=== PATIENT | male | born 1965 | race African-American/Black ===

== ENCOUNTER 2016-12-28 16:47 | Observation (INO) | payer BC ==
--- NOTE | ~2016-12-28 | DS ---
Discharge Summary [facility] [address] [place]. [address] NAME: TAMEKA DONOVAN : 69 STATUS : DIS Yang PAT#: [id number] AGE: 51 ADM/REG DATE : 12/28/16 MR#: [id number] REPORT SERV DATE: 12/31/16 DICTATED BY: JAMARCUS WOODS DATE: 12/30/16 REPORT STATUS : Draft TRANSCRIBED BY: MODL DATE: 12/30/16 ADMISSION DATE: 12/28/2016 DISCHARGE DATE: 12/30/2016 CHIEF COMPLAINT: Nausea, fever, dizziness. DISCHARGE DIAGNOSES: 1. Fever with unclear etiology, systemic inflammatory response syndrome versus possible sepsis. 2. 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 3. 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 4. Stable anemia. 5. History of atrial fibrillation. 6. Abdominal rash. HISTORY OF PRESENT ILLNESS: Please see full H and P for details regarding initial presentation by Dr. Armani Briones. HOSPITAL COURSE: 1. Fever with elevated procalcitonin. The patient was initially admitted, started on empiric cefepime. Concerned this may be possible evolving sepsis versus systemic inflammatory response syndrome to viral or other etiology. He was started on cefepime with improvement in his white blood cell count from 22.9 to 8.3 and procalcitonin from 8.5 to 2.6. At this point, all cultures have been negative. Chest x-ray, unremarkable and UA, normal. After discussion with Oncology, given the patient wishes to go home today because he has an appointment tomorrow which he does not want to miss, we will discharge him on Omnicef and follow up with Dr. Ty Salvador later this week. He feels fine. No further issues. 2. History of bone marrow transplant due to AML. The patient should continue on his outpatient medications. 3. Anemia, chronic. This is grossly stable. Hemoglobin is 11.1 at discharge. 4. Abdominal rash. Unclear etiology. We will discharge him on clotrimazole for a week if this does not help and he has persistence of this lesion, we would recommend dermatology consultation and biopsy. This is not consistent with shingles. This is nonerythematous and is not painful, and there are no vesicular lesions. 5. History of atrial fibrillation. Continue outpatient medications and Eliquis. Discharge will be home. Follow up will be Dr. Ty Salvador. DISCHARGE MEDICATIONS: Exact same as admission with the addition of Omnicef for seven days and clotrimazole ointment for seven days. PERTINENT LABORATORY DATA: At discharge, white blood cell count 8.3, hemoglobin 11.1, platelet count of 242. BMP grossly unremarkable. Procalcitonin 2.64. PERTINENT IMAGING: Chest x-ray read as no acute cardiopulmonary abnormality. Blood cultures Discharge Summary [address] [address] NAME: TAMEKA DONOVAN : 69 STATUS : DIS Yang PAT#: [id number] AGE: 51 ADM/REG DATE : 12/28/16 MR#: [id number] REPORT SERV DATE: 12/31/16 DICTATED BY: JAMARCUS WOODS DATE: 12/30/16 REPORT STATUS : Draft TRANSCRIBED BY: SANDY DATE: 12/30/16 are no growth. Time spent on this discharge, including discussion with Dr. Valladares from Oncology and the patient as well as nurse is greater than 30 minutes. DNK/MODL Jamarcus Woods MD / [id number] CC: MD Tim Sánchez M.D.
--- NOTE | ~2016-12-28 | HP ---
History And Physical [facility] [address] [place]. [address] NAME: TAMEKA DONOVAN : [birth year] STATUS : ADM Yang PAT#: [id number] AGE: 51 ADM/REG DATE : 12/28/16 MR#: [id number] REPORT SERV DATE: 12/29/16 DICTATED BY: ELIZABETH REID DATE: 12/28/16 REPORT STATUS : Draft TRANSCRIBED BY: MODL DATE: 12/28/16 DATE OF ADMISSION: 12/28/2016 CHIEF COMPLAINT: Nausea, fever, and dizziness. HISTORY OF PRESENT ILLNESS: The patient is a 51-year-old male with past medical history of pneumonia pancreatitis, diabetes, type 2, AML followed by Dr. Salvador, sepsis, and history of home marrow transplant [id number] disease, COPD, BOOP, disseminated herpes/aspergillosis, cardiomyopathy with EF of 40%, atrial fibrillation on chronic Eliquis, who presents today after having nausea, fever, and dizziness feeling. His is at bedside reports that these symptoms actually happened last couple of days, but the patient only recalls last day having these symptoms. Symptoms have been generalized, moderate in severity. The patient has a prescription for amoxicillin that he takes p.r.n. for similar episodes, but when fever was greater than 100 told the patient to come into the hospital for evaluation. Here patient reports that he has some nonspecific abdominal discomfort at times and is nonradiating associated mild nausea, fever, and dizziness. No vomiting or shortness of breath or chills were reported. There is no worsening activity or alleviating activity that affects current symptoms. The patient is not reporting any kind of dysuria or cough for recent exposure except for going to the gym a few weeks ago in which he has had small rash on his abdomen and back. REVIEW OF SYSTEMS: GENERAL: Positive for fevers, mild dizziness. EYES: No eye pain or visual changes, but does have significant chronic difficulties with his left eye followed by Dr. Caroline Merida and additional outpatient purification operator helper. ENT: No sinuses or ear pain, but did have broken veneer. NEURO: No headache or confusion. SKIN: He does have mild rash on chest wall and back. No rash or bruising. RESPIRATORY: No shortness of breath or dyspnea on exertion. CV: No chest pain or palpitations. GI: Mild nausea with abdominal pain, but no vomiting. : No dysuria or hematuria. MUSCULOSKELETAL: No myalgias or arthralgias above baseline, but does have chronic myalgias and arthralgias. ENDO: Positive mild fatigue. HEME: No bleeding or bruising reported. PSYCH: No anxiety or confusion. PAST MEDICAL HISTORY: A male with history of bone marrow transplant [id number], COPD, BOOP, disseminated herpes/aspergillosis of the lung, recent strep sepsis in May 2016, polyneuropathy, CKD baseline creatinine around 1, iron overload, cataracts, esophageal stricture, cardiomyopathy, EF 40% atrial fibrillation on chronic Eliquis. 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 History And Physical [address] [address] NAME: TAMEKA DONOVAN : 69 STATUS : ADM Yang PAT#: [id number] AGE: 51 ADM/REG DATE : 12/28/16 MR#: [id number] REPORT SERV DATE: 12/29/16 DICTATED BY: ELIZABETH REID DATE: 12/28/16 REPORT STATUS : Draft TRANSCRIBED BY: SANDY DATE: 12/28/16 ALLERGIES: BENZOS, IODINE, VANCOMYCIN, NEXIUM, ATIVAN, AND AMBIEN. HOME MEDICATIONS: Amoxicillin, Eliquis, aspirin, chronic azithromycin, Coreg, Celebrex, Restasis, Bentyl, Colace, Flonase, Advair, Provigil, Vigamox, Zofran, Endocet, OxyContin, Protonix, MiraLAX, Lyrica, Phenergan, Florastor, Senokot, Refresh, Flomax, Whit, magic mouthwash, vitamin E, slow iron tablets, melatonin, and ophthalmic syrup made by Dr. Caroline Merida. FAMILY HISTORY: Bone cancer and hypertension. PHYSICAL EXAMINATION: VITAL SIGNS: Blood pressure 135/78, temperature 99.4, pulse initially 106 down to 82, respirations 16, O2 sats 90% on room air. GENERAL: Slightly elderly and slightly weak appearing male. ENT: Nares patent. Tongue midline. Does have multiple postsurgical changes to left eye. ENT: Dry mucous membranes. Multiple veneers. No oral drainage or signs of pus or drainage. RESPIRATORY: Clear to auscultation. No wheezes. CV: Regular rate. No rubs or gallops. No pedal edema. GI: Soft, nontender, nondistended. CHEST: He does have mild rash on anterior chest wall and posterior back without bleeding, redness, or tenderness. MUSCULOSKELETAL: He does have mild left thigh pain, but moves all extremities x4. SKIN: Warm and dry. No rashes noted on chest wall exam. LYMPH: No cervical lymphadenopathy. HEME: No bleeding or bruising. NEURO: Alert and oriented. Moves all extremities. Symmetrical handgrip. PSYCH: Appropriate mood and affect. LABORATORY DATA: Procalcitonin 4.59. Portable chest, no acute cardiomegaly, lactate 0.8. Urinalysis grossly within normal limits. CMP, BMP grossly within normal limits. Alkaline phosphatase 192, AST 45, ALT 33, lipase 54. CBC, WBC count 22.9 previously 13.3, H and H 13.2 and 39.8, platelets 259. ASSESSMENT: 1. SIRS. 2. AML history. 3. Back and abdominal rash. 4. Diabetes type 2. 5. Chronic narcotic dependence. PLAN: 1. For SIRS, tachycardia with leukocytosis with elevated procalcitonin of unclear source at times. He does have abdominal discomfort at times. This seems somewhat mild as the patient does have has a history of sepsis and does have a current leukocytosis with increased neutrophils. We will place on cefepime at this time as the patient did have History And Physical [address] [address] NAME: TAMEKA DONOVAN : 69 STATUS : ADM Yang PAT#: [id number] AGE: 51 ADM/REG DATE : 12/28/16 MR#: [id number] REPORT SERV DATE: 12/29/16 DICTATED BY: ELIZABETH REID DATE: 12/28/16 REPORT STATUS : Draft TRANSCRIBED BY: MODMireya DATE: 12/28/16 a dose of from amoxicillin and on chronic azithromycin therapy. We will have heme/onc evaluation. Cultures ordered and pending. 2. AML history. The patient is followed by Dr. Salvador and requested Dr. Salvador to see and is requesting approval for antibiotics only if okay with Dr. Salvador. 3. Back and abdominal rash, nontender, greater than a week. No crusting lesions. Has had positive gym exposure. May require derm evaluation but due to non-tenderness, no crusting lesions and multiple dermatomes exposed, does not appear as zoster component. 4. Diabetes type 2, on sliding scale insulin. 5. Chronic narcotic dependence on home medications. All questions answered with the patient's family at bedside. DDN/MODL Elizabeth Redi MD / [id number] CC: MD Tim Sánchez M.D.
[2016-12-28 13:46] LABS: BASOPHILS 0.2 %; BASOPHILS ABSOLUTE 0.05 10/3/uL (0.0-0.16); EOSINOPHILS 1.3 %; HEMATOCRIT 39.8 % (40.0-51.0); HEMOGLOBIN 13.2 g/dL (13.6-17.8); IMMATURE GRANULOCYTES 0.5 %; IMMATURE GRANULOCYTES ABSOLUTE 0.11 10/3/uL (0.0-0.11); LYMPHOCYTES 8.9 %; LYMPHOCYTES ABSOLUTE 2.04 10/3/uL (0.67-4.30); MANUAL DIFF NO %; MEAN CORPUS HGB CONC 33.2 g/dL (32.0-36.0); MEAN CORPUSCULAR HEMOGLOB 32.3 pg (26.0-34.0); MEAN CORPUSCULAR VOLUME 97.3 fL (80-100); MEAN PLATELET VOLUME 11.1 fL (9.2-13.0); MONOCYTES 11.2 %; MONOCYTES ABSOLUTE 2.56 10/3/uL (0.21-1.20); NEUTROPHILS 77.9 %; NEUTROPHILS ABSOLUTE 17.86 10/3/uL (2.02-8.40); PLATELET COUNT 259 10/3/uL (150-400); RBC DISTRIBUTION WIDTH 13.5 % (12.0-16.0); RED CELL COUNT 4.09 10/6/uL (4.7-6.1); WHITE BLOOD CELLS 22.9 10/3/uL (4.5-10.5)
[2016-12-28 14:01] LABS: A/G RATIO 0.9 (0.7-1.9); ALBUMIN 3.7 G/DL (3.5-5.0); CALCIUM, SERUM 9.5 MG/DL (8.5-10.4); CHLORIDE, SERUM 99 MMOL/L (96-112); CO2 (CARBON DIOXIDE) 31 MMOL/L (24-34); CREATININE 1.29 MG/DL (0.70-1.30); GFR AFRICAN AMERICAN 75 ML/MIN (>=60); GFR NON AFRICAN AMERICAN 65 ML/MIN (>=60); GLOBULIN 4.1 G/DL (2.5-4.1); GLUCOSE, SERUM 89 MG/DL (60-99); POTASSIUM, SERUM 4.2 MMOL/L (3.5-5.3); SGOT(AST) 45 U/L (5-40); SGPT(ALT) 33 U/L (5-65); SODIUM, SERUM 139 MMOL/L (135-148); TOTAL PROTEIN 7.8 G/DL (6.0-8.5)
[2016-12-28 14:02] LABS: ALKALINE PHOSPHATASE 192 U/L (45-117); BUN (BLOOD UREA NITROGEN) 17 MG/DL (6-23); TOTAL BILIRUBIN 0.9 MG/DL (0-1.2)
[2016-12-28 16:22] LABS: WBC (NOT ORDERED) (RFLEX) 0 (0-5)
[2016-12-28 16:38] LABS: ASCORBIC ACID (UR NOT ORDER) NEG (NEG); BILIRUBIN, URINE NEGATIVE (NEG); KETONE, URINE NEGATIVE (NEG); LEUKOCYTE ESTERASE(NOT OR NEG (NEG); NITRITE (URINE) NEG (NEG)
[~2016-12-28 16:47] MED LIST: *UNABLE1; ADVAIR INH; ADVAIR250 INH; ASAB PO; BAC PO; BENTYL20 PO; BESIVANCE0.6 % OPH; C5; CALTRA600D PO; CELEBREX1 PO; CELLCEPT2 PO; CELLCEPT5 PO; CENTRUM PO; COREG3 PO; COREG6 PO; DSS PO; DUREZOL0.05 % OPH; ELIQUIS 5 MG TAB5 MG PO; FLOMAX4 PO; FLONASE NAS; FLORASTOR250 MG PO; GATIFLOXACIN; IRON TAB PO; LYRICA75 PO; MAALOX PO; MAGIC MOUTH WASH; MD ANDERSON PO; MELA3 PO; MIRALAXPKT PO; MONODOX100 MG PO; MULTIPLE VIT PO; MURO1282% OPH; MURO5OOIN OPH; OXYCON20 PO; OXYCON80 PO; P10 PO; P20 PO; P5 PO; PCET PO; PERCOCET1 TA4 PO; PR25R PR; PREDMILDOP OPH; PREDNISONE PO; PRILOSEC40 MG PO; PROTONIX PO; PROVIGIL1 PO; PROVIGIL2 PO; RESTASIS OPH; SENOKOTS PO; SEROQUEL25 PO; SEROQUEL50 MG PO; SERUM EYE; TOBREX OPH OPH; URSO FORTE500 MG PO; URSO250 PO; VALTREX5 PO; VANCOMYCIN 25 MG/ML OPH; VIGAMOX OPH; X5 PO; ZITHROMAX PO; ZITHROMAX500 MG PO; ZOFRAN ODT4 MG PO; ZOFRAN8 PO; ZOFRANODT8 PO; ZOVI200CAP PO; ZOVIRAX400 MG PO; [UNRECOGNIZED DRUG - OTHER] OPH
[2016-12-28] MEDS ORDERED: FLOMAX4 PO (16:54)
[2016-12-28] MEDS ORDERED: LYRICA75 PO (16:54)
[2016-12-28] MEDS ORDERED: PROVIGIL2 PO (16:54)
[2016-12-28] MEDS ORDERED: CELEBREX1 PO (16:54)
[2016-12-28] MEDS ORDERED: PROTONIX PO (16:55)
[2016-12-28] MEDS ORDERED: ELIQUIS 5 MG TAB5 MG PO (16:55)
[2016-12-28] MEDS ORDERED: COREG3 PO (16:56)
[2016-12-28] MEDS ORDERED: BENTYL20 PO (16:56)
[2016-12-28] MEDS ORDERED: ZOFRAN8 PO (16:57)
[2016-12-28] MEDS ORDERED: VIGAMOX OPH (17:05)
[2016-12-28] MEDS ORDERED: OXYCON80 PO (17:07)
[2016-12-28] MEDS ORDERED: ENDOCET1 TA3 PO (17:07)
[2016-12-28] MEDS ORDERED: ADVAIR INH (17:08)
[2016-12-28] MEDS ORDERED: URSO FORTE500 MG PO (17:08)
[2016-12-28] MEDS ORDERED: FLONASE NAS (17:09)
[2016-12-28] MEDS ORDERED: MAGIC MOUTHWASH PO (17:11)
[2016-12-28] MEDS ORDERED: RESTASIS OPH (17:11)
[2016-12-28] MEDS ORDERED: PR25 PO (17:12)
[2016-12-28] MEDS ORDERED: ASAB PO (17:13)
[2016-12-28] MEDS ORDERED: AMOXIL875 PO (17:14)
[2016-12-28] MEDS ORDERED: ZITHROMAX500 MG PO (17:17)
[2016-12-28] MEDS ORDERED: VITAMIN E PO (17:18)
[2016-12-28] MEDS ORDERED: ZITH250 PO (17:18)
[2016-12-28] MEDS ORDERED: MIRALAX POWDER1 PKT PO (17:19)
[2016-12-28] MEDS ORDERED: DSS PO (17:19)
[2016-12-28] MEDS ORDERED: SENTAB PO (17:20)
[2016-12-28] MEDS ORDERED: FLORASTOR250 MG PO (17:21)
[2016-12-28] MEDS ORDERED: SLO-FE PO (17:22)
[2016-12-28] MEDS ORDERED: MELATONIN PO (17:23)
[2016-12-28] MEDS ORDERED: REFRES1 OPH (17:24)
[2016-12-28] MEDS ORDERED: [UNRECOGNIZED DRUG - REMARK] OPH (17:30)
[2016-12-29 07:43] LABS: A/G RATIO 0.8 (0.7-1.9); ALBUMIN 2.8 G/DL (3.5-5.0); ALKALINE PHOSPHATASE 137 U/L (45-117); BUN (BLOOD UREA NITROGEN) 12 MG/DL (6-23); CALCIUM, SERUM 8.9 MG/DL (8.5-10.4); CHLORIDE, SERUM 106 MMOL/L (96-112); CO2 (CARBON DIOXIDE) 27 MMOL/L (24-34); CREATININE 1.04 MG/DL (0.70-1.30); GFR AFRICAN AMERICAN 97 ML/MIN (>=60); GFR NON AFRICAN AMERICAN 84 ML/MIN (>=60); GLOBULIN 3.4 G/DL (2.5-4.1); GLUCOSE, SERUM 95 MG/DL (60-99); POTASSIUM, SERUM 3.8 MMOL/L (3.5-5.3); SGOT(AST) 34 U/L (5-40); SGPT(ALT) 25 U/L (5-65); SODIUM, SERUM 141 MMOL/L (135-148); TOTAL BILIRUBIN 0.7 MG/DL (0-1.2); TOTAL PROTEIN 6.2 G/DL (6.0-8.5)
[2016-12-29 07:45] LABS: BASOPHILS 0.2 %; BASOPHILS ABSOLUTE 0.04 10/3/uL (0.0-0.16); EOSINOPHILS ABSOLUTE 0.51 10/3/uL (0.0-0.53); IMMATURE GRANULOCYTES 0.2 %; IMMATURE GRANULOCYTES ABSOLUTE 0.04 10/3/uL (0.0-0.11); LYMPHOCYTES 26.6 %; LYMPHOCYTES ABSOLUTE 4.48 10/3/uL (0.67-4.30); MEAN CORPUS HGB CONC 33.2 g/dL (32.0-36.0); MEAN CORPUSCULAR HEMOGLOB 32.4 pg (26.0-34.0); MEAN CORPUSCULAR VOLUME 97.6 fL (80-100); MEAN PLATELET VOLUME 10.3 fL (9.2-13.0); MONOCYTES 10.1 %; NEUTROPHILS 59.9 %; NEUTROPHILS ABSOLUTE 10.05 10/3/uL (2.02-8.40); PLATELET COUNT 234 10/3/uL (150-400); RBC DISTRIBUTION WIDTH 13.8 % (12.0-16.0); RED CELL COUNT 3.39 10/6/uL (4.7-6.1); WHITE BLOOD CELLS 16.8 10/3/uL (4.5-10.5)
[2016-12-29 07:46] LABS: HEMATOCRIT 33.1 % (40.0-51.0); MANUAL DIFF NO %
[2016-12-29 08:10] LABS: PROCALCITONIN 4.18 ng/mL (<0.5)
[2016-12-30 07:26] LABS: BASOPHILS 0.6 %; BASOPHILS ABSOLUTE 0.05 10/3/uL (0.0-0.16); EOSINOPHILS 6.6 %; EOSINOPHILS ABSOLUTE 0.55 10/3/uL (0.0-0.53); HEMATOCRIT 33.8 % (40.0-51.0); HEMOGLOBIN 11.1 g/dL (13.6-17.8); IMMATURE GRANULOCYTES 0.4 %; IMMATURE GRANULOCYTES ABSOLUTE 0.03 10/3/uL (0.0-0.11); LYMPHOCYTES 40.2 %; LYMPHOCYTES ABSOLUTE 3.35 10/3/uL (0.67-4.30); MEAN CORPUS HGB CONC 32.8 g/dL (32.0-36.0); MEAN CORPUSCULAR HEMOGLOB 32.2 pg (26.0-34.0); MEAN PLATELET VOLUME 10.4 fL (9.2-13.0); MONOCYTES 15.6 %; NEUTROPHILS 36.6 %; NEUTROPHILS ABSOLUTE 3.06 10/3/uL (2.02-8.40); PLATELET COUNT 242 10/3/uL (150-400); RBC DISTRIBUTION WIDTH 13.9 % (12.0-16.0); RED CELL COUNT 3.45 10/6/uL (4.7-6.1)
[2016-12-30 07:27] LABS: MANUAL DIFF NO %; WHITE BLOOD CELLS 8.3 10/3/uL (4.5-10.5)
[2016-12-30 07:38] LABS: BUN (BLOOD UREA NITROGEN) 10 MG/DL (6-23); CALCIUM, SERUM 8.8 MG/DL (8.5-10.4); CHLORIDE, SERUM 108 MMOL/L (96-112); CO2 (CARBON DIOXIDE) 28 MMOL/L (24-34); GFR AFRICAN AMERICAN 102 ML/MIN (>=60); GFR NON AFRICAN AMERICAN 88 ML/MIN (>=60); GLUCOSE, SERUM 98 MG/DL (60-99); POTASSIUM, SERUM 4.1 MMOL/L (3.5-5.3); SODIUM, SERUM 144 MMOL/L (135-148)
[2016-12-30 08:45] LABS: PROCALCITONIN 2.64 ng/mL (<0.5)
[2016-12-30] MEDS ORDERED: LOTRIMIN-MYCELE15 GM TOP (12:27)
[2016-12-30] MEDS ORDERED: OMNICEF300 PO (12:38)
== END 2016-12-30 15:00 | disposition home or self-care (01) ==
LOC: ER 16:47 → 4SO 19:23 → 4EA 19:51
PROVIDERS: Emergency Medicine; Internal Medicine Hematology & Oncology; Student in an Organized Health Care Education/Training Program
DX: R50.9 Fever, unspecified (principal); D64.9 Anemia, unspecified; R21 Rash and other nonspecific skin eruption; J44.9 Chronic obstructive pulmonary disease, unspecified; E11.9 Type 2 diabetes mellitus without complications; I10 Essential (primary) hypertension; F41.9 Anxiety disorder, unspecified; Z88.1 Allergy status to other antibiotic agents; Z91.041 Radiographic dye allergy status; Z88.8 Allergy status to other drugs, medicaments and biological substances; Z79.2 Long term (current) use of antibiotics; Z79.82 Long term (current) use of aspirin; Z79.899 Other long term (current) drug therapy; Z82.49 Family history of ischemic heart disease and other diseases of the circulatory system; Z79.4 Long term (current) use of insulin; Z90.89 Acquired absence of other organs; Z98.890 Other specified postprocedural states; Z98.41 Cataract extraction status, right eye; Z98.42 Cataract extraction status, left eye; Z79.891 Long term (current) use of opiate analgesic
CPT/HCPCS: 71010; 80048; 80053; 81001; 83605; 83690; 83735; 84145; 85025; 85347; 87040; 94640; 96375; 96376; 99285; A9270-GY; G0378; J0692; J1170; J2405; J2550